=== PATIENT | male | born 1985 | race Caucasian/White ===

== ENCOUNTER 2018-01-16 14:34 | Emergency (ER) | payer BC ==
[~2018-01-16] VITALS: Ht 170.2 cm; Wt 86.2 kg
[2018-01-16 14:57] VITALS: BP 123/81
[2018-01-16] MEDS: LIDOCAINE MPF 1% - **ER/OR** 10 MG/ML VIAL INJ ONE (16:29)
[2018-01-16 16:46] VITALS: BP 120/80
== END 2018-01-16 16:46 | disposition home or self-care (01) ==
LOC: MED 14:34
DX: L02.212 Cutaneous abscess of back [any part, except buttock and flank] (principal); I10 Essential (primary) hypertension
CPT/HCPCS: 10060; 99283; J2001

== ENCOUNTER 2020-07-16 15:33 | Emergency (ER) | payer SELFPAY ==
[~2020-07-16] VITALS: Ht 170.2 cm; Wt 86.2 kg
[2020-07-16] MEDS ORDERED: KETOROLAC 60 MG/2 ML VIAL IM ONE (15:45)
[2020-07-16 16:01] VITALS: BP 121/89
[2020-07-16] MEDS ORDERED: DEXTROSE 5% IV ONE ×2 (16:05→18:20)
[2020-07-16] MEDS ORDERED: VANCOMYCIN IV ONE ×2 (16:05→18:20)
[2020-07-16] MEDS ORDERED: KETOROLAC 30 MG/ML VIAL IVP ONE ×2 (16:10→18:20)
[2020-07-16] MEDS ORDERED: VANCOMYCIN 1,000 MG VIAL ONE (18:17)
[2020-07-16] MEDS ORDERED: cefTRIAXone 1,000 MG VIAL ONE (18:18)
[2020-07-16] MEDS ORDERED: KETOROLAC 30 MG/ML VIAL ONE (18:19)
--- NOTE | 2020-07-16 18:30 | NUR ---
ER-PA ASSESSED AND TREATED PT.
--- NOTE | 2020-07-16 18:45 | NUR ---
PT CAME IN WITH FINGER PAIN, PT IS A/0X4, NO SIGN OF DISTRESS NOTED, PAIN LEVEL 6/10 AT THIS TIME. SAFETY MEASURES IN PLACE, WILL CONTINUE TO MONITOR.
--- NOTE | 2020-07-16 20:10 | NUR ---
Patient discharged with v/s stable. Written and verbal after care instructions given and explained. Patient alert, oriented and verbalized understanding of instructions. Ambulatory with steady gait. All questions addressed prior to discharge. ID band removed. Patient advised to follow up with PMD. Rx of CEPHALEXIN, NORCO given. Patient educated on indication of medication including possible reaction and side effects. Opportunity to ask questions provided and answered.
[2020-07-16 20:11] VITALS: BP 121/89
--- NOTE | 2020-07-17 12:39 | NUR ---
LATE ENTRY -- TUCKER END TIME 190707/[id number]
== END 2020-07-16 20:11 | disposition home or self-care (01) ==
LOC: MED 15:33
DX: L03.012 Cellulitis of left finger (principal); I10 Essential (primary) hypertension
CPT/HCPCS: 73130; 96365; 96367; 96375; 99284; J0696; J1885; J3370; J7060